=== PATIENT | male | born 1955 | race Caucasian/White ===

== ENCOUNTER 2021-12-06 12:19 | Outpatient (CLI) | payer MEDICARE | END 2021-12-06 12:20 | disposition home or self-care (01) | LOC: ULT 12:19 | PROVIDERS: ATTEND Family Medicine | DX: I69.322 Dysarthria following cerebral infarction (principal); I10 Essential (primary) hypertension; F32.4 Major depressive disorder, single episode, in partial remission; I69.359 Hemiplegia and hemiparesis following cerebral infarction affecting unspecified side | CPT/HCPCS: 93880 ==